=== PATIENT | male | born 1965 ===

== ENCOUNTER 2017-04-29 14:37 | Inpatient (IN) | payer MEDICAID ==
[2017-04-29] MEDS ORDERED: Sodium Chloride 0.9% 1,000 ML IV ONE ×2 (15:12→16:38)
[2017-04-29] MEDS ORDERED: Sodium Chloride 0.9% 1,000 ML ONE ×2 (15:18→16:40)
[2017-04-29 15:33] LABS: BASO % 0.3 % (0.0-2.0); HEMATOCRIT 44.2 % (35.0-51.0); LYMPH # 0.4 K/uL (1.0-4.3); MEAN CELL VOLUME 87.8 fL (80.0-94.0); MEAN CORPUSCULAR HEMOGLOBIN 29.9 pg (27.0-31.0); MEAN PLATELET VOLUME 7.5 fL (7.2-11.7); MONO # 0.4 K/uL (0.0-0.8); MONO % 7.5 % (0.0-10.0); NRBC % 0.2 % (0.0-2.0); PLATELET COUNT 186 K/uL (130-400); RED CELL DISTRIBUTION WIDTH 12.1 % (11.5-14.5); WHITE BLOOD COUNT 5.2 K/uL (4.8-10.8)
[2017-04-29 15:36] LABS: VENOUS BLOOD GAS BASE EXCESS 4.3 mmol/L (0.0-2.0); VENOUS BLOOD GAS PCO2 59 mmHg (40-60); VENOUS BLOOD PH 7.34 (7.32-7.43)
[2017-04-29 15:41] LABS: CHLORIDE 95 mmol/L (98-107); SODIUM 136 mmol/L (132-148)
[2017-04-29 15:43] LABS: AST/SGOT 51 U/L (17-59); BILIRUBIN,TOTAL 0.6 mg/dL (0.2-1.3); CARBON DIOXIDE 28 mmol/L (22-30); GFR AFRICAN-AMERICAN > 60
[2017-04-29 15:44] LABS: ALKALINE PHOSPHATASE 61 U/L (38-126); ALT/SGPT 59 U/L (21-72); BLOOD UREA NITROGEN 16 mg/dL (9-20); CALCIUM 8.8 mg/dl (8.6-10.4); GLUCOSE,RANDOM 134 mg/dL (75-110); TOTAL PROTEIN 7.8 g/dL (6.3-8.3)
[2017-04-29 15:45] LABS: RBC URINE 20 /hpf (0-3); URINE BILIRUBIN NEGATIVE (NEGATIVE); URINE BLOOD 1+ (NEGATIVE); URINE COLOR Amber (YELLOW); URINE GLUCOSE (UA) NORMAL (Normal); URINE HYALINE CAST 0-2 /lpf (0-2); URINE KETONE NEGATIVE (NEGATIVE); URINE LEUKOCYTE ESTERASE NEG Leu/uL (Negative); URINE PROTEIN 1+ mg/dL (NEGATIVE); WBC URINE 4 /hpf (0-5)
[2017-04-29 15:55] LABS: NEUTROPHIL 66 % (50-75); TOTAL CELLS COUNTED 100
--- NOTE | 2017-04-29 17:17 | RAD ---
HISTORY: Fever, cough COMPARISON: None available. TECHNIQUE: Chest, one view. FINDINGS: Examination limited by habitus. LUNGS: No focal consolidation. Please note that chest x-ray has limited sensitivity for the detection of pulmonary masses. PLEURA: No significant pleural effusion identified. No definite pneumothorax . CARDIOVASCULAR: The cardiomediastinal silhouette appears within normal limits of size. OSSEOUS STRUCTURES: No acute osseous abnormality identified. VISUALIZED UPPER ABDOMEN: Unremarkable. OTHER FINDINGS: None. IMPRESSION: No focal consolidation, significant pleural effusion, or definite pneumothorax identified.
[2017-04-29] MEDS ORDERED: Vancomycin 1 GM 1 GM/250 ML BAG IVPB STA (17:44)
[2017-04-29] MEDS ORDERED: Moxifloxacin IV 400mg/250ml NS 400 MG/250 ML BAG IVPB ONE ×2 (17:44→18:08)
--- NOTE | 2017-04-29 17:46 | C.PDOC ---
Time Seen by Provider: 04/29/17 15:03 Chief Complaint (Nursing): Fever History Per: Patient, Family Onset/Duration Of Symptoms: Days (4) Current Symptoms Are (Timing): Still Present Associated Symptoms: Fever, Sore Throat, Cough, Myalgias, Nasal Congestion Severity: Moderate Recent travel outside of the [place]: No Additional History Per: Prior Records Past Medical History Reviewed: Historical Data, Nursing Documentation, Vital Signs Vital Signs: Last Vital Signs Temp 100.7 F H 04/29/17 17:16 Pulse 76 04/29/17 17:16 Resp 16 04/29/17 17:16 BP 99/56 L 04/29/17 17:16 Pulse Ox 95 04/29/17 17:16 - Medical History PMH: No Chronic Diseases Surgical History: No Surg Hx Family History: States: Unknown Family Hx - Social History Hx Tobacco Use: No Hx Alcohol Use: No Hx Substance Use: No Review Of Systems Except As Marked, All Systems Reviewed And Found Negative. Constitutional: Positive for: Fever, Weakness, Malaise Eyes: Negative for: Conjunctivae Inflammation, Eyelid Inflammation ENT: Positive for: Throat Pain. Negative for: Ear Pain Cardiovascular: Negative for: Chest Pain Respiratory: Positive for: Cough. Negative for: Shortness of Breath, Hemoptysis Gastrointestinal: Negative for: Vomiting, Abdominal Pain, Diarrhea Genitourinary: Negative for: Dysuria Musculoskeletal: Positive for: Back Pain Skin: Negative for: Rash Neurological: Positive for: Headache. Negative for: Weakness, Numbness, Seizures, Altered Mental Status Physical Exam - Physical Exam Appears: No Acute Distress, Other (Malaised) Skin: Normal Color, Warm, Dry, No Rash Head: Atraumatic, Normacephalic Eye(s): bilateral: Normal Inspection, PERRL, EOMI Ear(s): Bilateral: Normal Oral Mucosa: Dry, No Drooling, No Trismus Tongue: Normal Appearing Throat: Erythema, No Exudate, No Drooling, No Mass Neck: Normal ROM, Supple Cardiovascular: Rhythm Regular Respiratory: Normal Breath Sounds, No Accessory Muscle Use Gastrointestinal/Abdominal: Soft, No Tenderness Back: No CVA Tenderness, No Vertebral Tenderness Extremity: Normal ROM Neurological/Psych: Oriented x3, Normal Motor, Normal Sensation ED Course And Treatment - Laboratory Results Result Diagrams: 04/29/17 15:28 04/29/17 15:28 Lab Interpretation: Abnormal Interpretation Of Abnormal: Bandemia O2 Sat by Pulse Oximetry: 95 Pulse Ox Interpretation: Normal - Radiology CXR: Viewed By Me, Read By Radiologist CXR Interpretation: Yes: No Acute Disease Progress Note: Pt refusing Throat culture. Progress - Interventions Interventions:: Observation, Intravenous fluid - Medications Administered Oral: Acetaminophen Intravenous: NSAID - Data Reviewed Data Reviewed: Lab, Diagnostic imaging, Old records - Patient Status Patient status: Partially improved - Continuity of Care Discussed patient case with:: Patient, Family-HIPPA compliant, ED Nurse, PMD Disposition Discussed With : Leandro Resendiz Comment: He wants pt blood and urine cultures to be sent, pt to be started on Avelox and Vancomycin IV and pt to be admitted on his service. Doctor Will See Patient In The: Hospital Counseled Patient/Family Regarding: Studies Performed, Diagnosis - Disposition Disposition: HOSPITALIZED Disposition Time: 17:48 Condition: GUARDED - Clinical Impression Clinical Impression: Fever, Bandemia
[2017-04-29] MEDS ORDERED: Vancomycin 1 GM 1 GM/250 ML BAG IVPB ONE (19:38)
--- NOTE | 2017-04-29 21:03 | CP.PCM.HP ---
Past Patient History - Past Social History Smoking Status: Never Smoked - PSYCHIATRIC Hx Substance Use: No - SURGICAL HISTORY Hx Surgeries: No Meds Allergies/Adverse Reactions: Allergies Allergy/AdvReac Type Severity Reaction Status Date / Time No Known Allergies Allergy Verified 03/30/16 17:42 Results - Vital Signs Recent Vital Signs: Last Vital Signs Temp 100.2 F H 04/29/17 20:58 Pulse 65 04/29/17 20:58 Resp 20 04/29/17 20:58 BP 92/58 L 04/29/17 20:58 Pulse Ox 96 04/29/17 20:58 - Labs Result Diagrams: 04/29/17 15:28 04/29/17 15:28
[2017-04-29] MEDS: Sodium Chloride 0.9% 1,000 ML IV SCH (21:44)
[2017-04-30] MEDS: guaiFENesin DM 200 mg-20 mg/10 ml UD PO PRN ×2 (06:20→18:26)
--- NOTE | 2017-04-30 06:55 | HP ---
CHIEF COMPLAINT: Fever, chills and weakness. HISTORY OF PRESENT ILLNESS: This is a 51-year-old male with history of hepatitis C and he has been evaluated by Hepatology and he is seroconverted, but he does not have any active disease. In usual state of health, he was ambulatory, independent in activities of daily living. No active medical issue. For the last 4 days, he has been having fever, chills, rigors, body aches, tiredness, cough, sore throat, nasal congestion and he is getting more, he was seen in [facility] with no improvement on medical . He is getting weak. He has chest congestion, weakness and he denies any abdominal pain, nausea, vomiting, diarrhea. He has generalized weakness and fatigue. He denied any polyuria, polydipsia, or polyphagia. He denies any hematuria or pyuria. There is no history of trauma, fall, or loss of consciousness. He denies any seizure-like activity. He denies any skin rash. He denies any vertigo. He denies any history of change in color of urine and feces. He denies any sneezing, itchy eyes, or itchy nose. He denies any history of recent drug abuse. He just had some dry cough. There is no chest pain. ALLERGIES: UNKNOWN ALLERGIES. CURRENT MEDICATIONS: None. PAST MEDICAL HISTORY: History of hepatitis C, recovered. SOCIAL HISTORY: Nonsmoker, non-EtOH user, no drug use. PHYSICAL EXAMINATION GENERAL: A middle aged male, in distress and generalized weakness. VITAL SIGNS: Blood pressure 115/70, pulse 84, respiratory rate 103. SKIN: Flushed, warm. HEENT: Atraumatic and normocephalic. Negative pallor. Negative jaundice. Extraocular movements are intact. NECK: Supple. Flat neck veins. No JVD. No lymph node. No thyromegaly. No carotid bruits. CHEST: Chest wall bilaterally symmetrical expansion. LUNGS: Bilaterally clear. No rales, no rhonchi. Severe PMI in the fifth intercostal space. CARDIOVASCULAR: S1 and S2, regular. ABDOMEN: Soft and nontender. Bowel sounds positive. RECTAL: No masses. No bleeding. EXTREMITIES: No clubbing, cyanosis, or edema. [employer]ODUCTION [employer]: Awake, alert, and oriented x3. Cranial nerves II through XII are normal. Power 5/5 x4. ASSESSMENT: 1. Fever, rule out septicemia. Etiology could be viral respiratory tract infection. 2. Dehydration. PLAN: Admit, septic workup, IV antibiotics, monitor the patient, ID consult. Leandro Resendiz MD
[2017-04-30] MEDS: Sodium Chloride 0.9% 1,000 ML IV SCH ×3 (07:22→17:48)
[2017-04-30 07:46] LABS: BASO % 0.2 % (0.0-2.0); EOS % 0.1 % (0.0-4.0); HEMATOCRIT 36.5 % (35.0-51.0); LYMPH # 1.2 K/uL (1.0-4.3); MEAN CORPUSCULAR HEMOGLOBIN 30.2 pg (27.0-31.0); MEAN CORPUSCULAR HGB CONC 35.5 g/dL (33.0-37.0); MEAN PLATELET VOLUME 7.9 fL (7.2-11.7); MONO # 0.5 K/uL (0.0-0.8); NRBC % 0.2 % (0.0-2.0); RED CELL DISTRIBUTION WIDTH 12.2 % (11.5-14.5); WHITE BLOOD COUNT 3.3 K/uL (4.8-10.8)
[2017-04-30 07:51] LABS: CHLORIDE 101 mmol/L (98-107); POTASSIUM 3.4 mmol/L (3.6-5.2); SODIUM 135 mmol/L (132-148)
[2017-04-30 07:53] LABS: BILIRUBIN,TOTAL 0.5 mg/dL (0.2-1.3); GFR AFRICAN-AMERICAN > 60
[2017-04-30 07:54] LABS: ALB/GLOB RATIO 0.9 (1.0-2.1); ALKALINE PHOSPHATASE 41 U/L (38-126); ALT/SGPT 48 U/L (21-72); AST/SGOT 31 U/L (17-59); BLOOD UREA NITROGEN 12 mg/dL (9-20); CALCIUM 7.6 mg/dl (8.6-10.4); CARBON DIOXIDE 27 mmol/L (22-30); GLUCOSE,RANDOM 110 mg/dL (75-110); MEAN CELL VOLUME 85.2 fL (80.0-94.0); TOTAL PROTEIN 5.8 g/dL (6.3-8.3)
[2017-04-30] MEDS ORDERED: Potassium Chloride 20 mEq ER Tab PO ONE (14:00)
[2017-04-30] MEDS: Moxifloxacin IV 400mg/250ml NS 400 MG/250 ML BAG IVPB SCH (17:46)
[2017-04-30] MEDS ORDERED: Potassium Chloride 20 mEq/15 ml LIQ UD PO STA (18:17)
[2017-04-30] MEDS: Oxymetazoline 0.05% Nasal Spray (30 ml) NS SCH (21:11)
--- NOTE | 2017-04-30 23:46 | CP.PCM.PN ---
Subjective - Date & Time of Evaluation Date of Evaluation: 04/30/17 - Subjective Subjective: fever low grade lbp, cough, no sob, no chest pain Objective - Vital Signs/Intake and Output Vital Signs (last 24 hours): Temp Pulse Resp BP Pulse Ox 99.2 F 58 L 18 116/69 97 04/30/17 16:00 04/30/17 16:00 04/30/17 16:00 04/30/17 16:00 04/30/17 16:00 - Medications Medications: Current Medications Acetaminophen (Tylenol 325mg Tab) 650 mg PO Q6 PRN PRN Reason: Fever >100.4 F Last Admin: 04/30/17 06:25 Dose: 650 mg Guaifenesin/Dextromethorphan (Robitussin Dm) 10 ml PO Q4H PRN PRN Reason: Cough and congestion Last Admin: 04/30/17 18:26 Dose: 10 ml Heparin Sodium (Porcine) (Heparin) 5,000 units SC Q8 [facility] Last Admin: 04/30/17 22:21 Dose: Not Given Moxifloxacin HCl (Avelox Iv 400mg/250ml Ns) 400 mg in 250 mls @ 167 mls/hr IVPB Q24H [facility] Last Admin: 04/30/17 17:46 Dose: 167 mls/hr Sodium Chloride (Sodium Chloride 0.9%) 1,000 mls @ 100 mls/hr IV .Q10H [facility] Last Admin: 04/30/17 17:48 Dose: Not Given Vancomycin HCl 1 gm/ Sodium (Chloride) 250 mls @ 166.7 mls/hr IVPB Q12 [facility] Last Admin: 04/30/17 22:18 Dose: 166.7 mls/hr Oxymetazoline HCl (Afrin 0.05%) 0 ml NS Q12H [facility] Last Admin: 04/30/17 21:11 Dose: 1 spray Pneumococcal Polyvalent Vaccine (Pneumovax 23 Vaccine) 0.5 ml IM .ONCE ONE Stop: 05/01/17 10:01 Tramadol HCl (Ultram) 50 mg PO TID PRN PRN Reason: Pain, severe (8-10) Last Admin: 04/30/17 19:59 Dose: 50 mg - Constitutional Appears: Non-toxic, No Acute Distress - Head Exam Head Exam: ATRAUMATIC, NORMAL INSPECTION, NORMOCEPHALIC - Eye Exam Eye Exam: EOMI, Normal appearance - ENT Exam ENT Exam: Mucous Membranes Moist, Normal Exam - Neck Exam Neck Exam: Normal Inspection - Respiratory Exam Respiratory Exam: Rhonchi, NORMAL BREATHING PATTERN - Cardiovascular Exam Cardiovascular Exam: Tachycardia, REGULAR RHYTHM - GI/Abdominal Exam GI & Abdominal Exam: Soft, Normal Bowel Sounds Assessment and Plan (1) Bandemia Status: Acute (2) Fever Status: Acute
[2017-05-01] MEDS: Sodium Chloride 0.9% 1,000 ML IV SCH ×2 (05:30→14:14)
[2017-05-01] MEDS: Oxymetazoline 0.05% Nasal Spray (30 ml) NS SCH ×2 (09:17→21:12)
[2017-05-01] MEDS ORDERED: Pneumococcal 23-Valent Vaccine IM ONE (10:00)
[2017-05-01] MEDS: guaiFENesin DM 200 mg-20 mg/10 ml UD PO PRN ×2 (12:39→21:18)
--- NOTE | 2017-05-01 15:05 | CP.PCM.PN ---
Objective - Vital Signs/Intake and Output Vital Signs (last 24 hours): Temp Pulse Resp BP Pulse Ox 98.5 F 53 L 20 129/80 97 05/01/17 08:24 05/01/17 08:24 05/01/17 08:24 05/01/17 08:24 05/01/17 08:24 Intake and Output: 05/01/17 05/01/17 06:59 18:59 Intake Total 800 Balance 800 - Medications Medications: Current Medications Acetaminophen (Tylenol 325mg Tab) 650 mg PO Q6 PRN PRN Reason: Fever >100.4 F Last Admin: 04/30/17 23:53 Dose: 650 mg Guaifenesin/Dextromethorphan (Robitussin Dm) 10 ml PO Q4H PRN PRN Reason: Cough and congestion Last Admin: 05/01/17 12:39 Dose: 10 ml Heparin Sodium (Porcine) (Heparin) 5,000 units SC Q8 [facility] Last Admin: 05/01/17 13:20 Dose: Not Given Moxifloxacin HCl (Avelox Iv 400mg/250ml Ns) 400 mg in 250 mls @ 167 mls/hr IVPB Q24H [facility] Last Admin: 04/30/17 17:46 Dose: 167 mls/hr Sodium Chloride (Sodium Chloride 0.9%) 1,000 mls @ 100 mls/hr IV .Q10H [facility] Last Admin: 05/01/17 14:14 Dose: 100 mls/hr Vancomycin HCl 1 gm/ Sodium (Chloride) 250 mls @ 166.7 mls/hr IVPB Q12 [facility] Last Admin: 05/01/17 09:16 Dose: 166.7 mls/hr Oxymetazoline HCl (Afrin 0.05%) 0 ml NS Q12H [facility] Last Admin: 05/01/17 09:17 Dose: 1 spray Tramadol HCl (Ultram) 50 mg PO TID PRN PRN Reason: Pain, severe (8-10) Last Admin: 05/01/17 12:39 Dose: 50 mg Assessment and Plan (1) Bandemia Status: Acute (2) Fever Status: Acute
[2017-05-01] MEDS: Moxifloxacin IV 400mg/250ml NS 400 MG/250 ML BAG IVPB SCH (17:51)
[2017-05-02 08:22] VITALS: RESP 20
[2017-05-02] MEDS: Sodium Chloride 0.9% 1,000 ML IV SCH ×2 (09:30→21:34)
[2017-05-02] MEDS: Oxymetazoline 0.05% Nasal Spray (30 ml) NS SCH ×2 (09:31→21:40)
[2017-05-02] MEDS: guaiFENesin DM 200 mg-20 mg/10 ml UD PO PRN ×3 (09:32→21:40)
[2017-05-02] MEDS: Moxifloxacin IV 400mg/250ml NS 400 MG/250 ML BAG IVPB SCH (17:47)
--- NOTE | 2017-05-02 23:22 | CP.PCM.PN ---
Subjective - Date & Time of Evaluation Date of Evaluation: 05/02/17 - Subjective Subjective: no fever, no sob, cough Objective - Vital Signs/Intake and Output Vital Signs (last 24 hours): Temp Pulse Resp BP Pulse Ox 98.9 F 46 L 20 127/73 98 05/02/17 16:00 05/02/17 16:00 05/02/17 16:00 05/02/17 16:00 05/02/17 16:00 Intake and Output: 05/02/17 05/03/17 18:59 06:59 Intake Total 800 900 Balance 800 900 - Medications Medications: Current Medications Acetaminophen (Tylenol 325mg Tab) 650 mg PO Q6 PRN PRN Reason: Fever >100.4 F Last Admin: 04/30/17 23:53 Dose: 650 mg Guaifenesin/Dextromethorphan (Robitussin Dm) 10 ml PO Q4H PRN PRN Reason: Cough and congestion Last Admin: 05/02/17 21:40 Dose: 10 ml Moxifloxacin HCl (Avelox Iv 400mg/250ml Ns) 400 mg in 250 mls @ 167 mls/hr IVPB Q24H [facility] Last Admin: 05/02/17 17:47 Dose: 167 mls/hr Vancomycin HCl 1 gm/ Sodium (Chloride) 250 mls @ 166.7 mls/hr IVPB Q12 [facility] Last Admin: 05/02/17 21:35 Dose: 166.7 mls/hr Oxymetazoline HCl (Afrin 0.05%) 0 ml NS Q12H [facility] Last Admin: 05/02/17 21:40 Dose: 1 spray Tramadol HCl (Ultram) 50 mg PO TID PRN PRN Reason: Pain, severe (8-10) Last Admin: 05/02/17 21:41 Dose: 50 mg - Constitutional Appears: Non-toxic, No Acute Distress - Head Exam Head Exam: ATRAUMATIC, NORMAL INSPECTION, NORMOCEPHALIC - Eye Exam Eye Exam: Normal appearance Pupil Exam: NORMAL ACCOMODATION - ENT Exam ENT Exam: Mucous Membranes Moist, Normal Exam - Neck Exam Neck Exam: Full ROM, Normal Inspection - Cardiovascular Exam Cardiovascular Exam: REGULAR RHYTHM, +S1, +S2 - GI/Abdominal Exam GI & Abdominal Exam: Normal Bowel Sounds Assessment and Plan (1) Bandemia Status: Acute (2) Fever Status: Acute
[2017-05-03] MEDS: Oxymetazoline 0.05% Nasal Spray (30 ml) NS SCH ×2 (10:02→12:43)
[2017-05-03] MEDS: guaiFENesin DM 200 mg-20 mg/10 ml UD PO PRN (10:19)
[2017-05-03 14:38] LABS: CHLORIDE 98 mmol/L (98-107); POTASSIUM 4.1 mmol/L (3.6-5.2); SODIUM 137 mmol/L (132-148)
[2017-05-03 14:41] LABS: BLOOD UREA NITROGEN 12 mg/dL (9-20); CALCIUM 8.6 mg/dl (8.6-10.4); CARBON DIOXIDE 26 mmol/L (22-30); GFR AFRICAN-AMERICAN > 60; GLUCOSE,RANDOM 117 mg/dL (75-110)
[2017-05-03 14:43] LABS: BASO % 0.4 % (0.0-2.0); HEMATOCRIT 43.8 % (35.0-51.0); LYMPH # 1.2 K/uL (1.0-4.3); LYMPH % 50.7 % (20.0-40.0); MEAN CELL VOLUME 86.2 fL (80.0-94.0); MEAN CORPUSCULAR HEMOGLOBIN 29.9 pg (27.0-31.0); MEAN CORPUSCULAR HGB CONC 34.7 g/dL (33.0-37.0); MEAN PLATELET VOLUME 7.7 fL (7.2-11.7); MONO # 0.3 K/uL (0.0-0.8); MONO % 12.7 % (0.0-10.0); NRBC % 0.2 % (0.0-2.0); PLATELET COUNT 203 K/uL (130-400); WHITE BLOOD COUNT 2.4 K/uL (4.8-10.8)
[2017-05-03 15:33] LABS: NEUTROPHIL 20 % (50-75); REACTIVE LYMPHOCYTES 2 % (0-0); TOTAL CELLS COUNTED 50
[2017-05-03 17:04] VITALS: BP 146/88; PULSE 51; TEMP 98.5; O2SAT 98
--- NOTE | 2017-05-03 17:33 | CP.PCM.PN ---
Subjective - Date & Time of Evaluation Date of Evaluation: 05/03/17 Time of Evaluation: 11:00 - Subjective Subjective: Alert, awake, denies sob or chest pains. no acute distress. Objective - Vital Signs/Intake and Output Vital Signs (last 24 hours): Temp Pulse Resp BP Pulse Ox 98.5 F 51 L 20 146/88 98 05/03/17 15:03 05/03/17 15:03 05/03/17 15:03 05/03/17 15:03 05/03/17 15:03 Intake and Output: 05/03/17 05/03/17 06:59 18:59 Intake Total 1050 Balance 1050 - Labs Labs: 05/03/17 14:20 05/03/17 14:20 Assessment and Plan - Assessment and Plan (Free Text) Assessment: Patient is seen and examined. Alert and orientedx3, no sob or chest pains. D/W DR Resendiz, discharge plan for today on avelox 400mg po daily x5 days. Advised to follow up PMD in 1 week.
--- NOTE | 2017-05-03 19:33 | CP.PCM.DIS ---
Provider - Provider Date of Admission: 04/30/17 11:54 Attending physician: Leandro Resendiz MD Diagnosis - Discharge Diagnosis (1) Bandemia Status: Acute (2) Fever Status: Acute Hospital Course - Lab Results Lab Results: Most Recent Lab Values WBC 2.4 K/uL (4.8-10.8) L 05/03/17 14:20 RBC 5.08 Mil/uL (4.40-5.90) 05/03/17 14:20 Hgb 15.2 g/dL (12.0-18.0) D 05/03/17 14:20 Hct 43.8 % (35.0-51.0) 05/03/17 14:20 MCV 86.2 fL (80.0-94.0) 05/03/17 14:20 MCH 29.9 pg (27.0-31.0) 05/03/17 14:20 MCHC 34.7 g/dL (33.0-37.0) 05/03/17 14:20 RDW 12.0 % (11.5-14.5) 05/03/17 14:20 Plt Count 203 K/uL (130-400) 05/03/17 14:20 MPV 7.7 fL (7.2-11.7) 05/03/17 14:20 Neut % (Auto) 34.2 % (50.0-75.0) L 05/03/17 14:20 Lymph % (Auto) 50.7 % (20.0-40.0) H 05/03/17 14:20 [place] % (Auto) 12.7 % (0.0-10.0) H 05/03/17 14:20 Eos % (Auto) 2.0 % (0.0-4.0) 05/03/17 14:20 Baso % (Auto) 0.4 % (0.0-2.0) 05/03/17 14:20 Neut # 0.8 K/uL (1.8-7.0) L 05/03/17 14:20 Lymph # 1.2 K/uL (1.0-4.3) 05/03/17 14:20 [place] # 0.3 K/uL (0.0-0.8) 05/03/17 14:20 Eos # 0.0 K/uL (0.0-0.7) 05/03/17 14:20 Baso # 0.0 K/uL (0.0-0.2) 05/03/17 14:20 Neutrophils % (Manual) 20 % (50-75) L 05/03/17 14:20 Band Neutrophils % 2 % (0-2) 05/03/17 14:20 Lymphocytes % (Manual) 58 % (20-40) H 05/03/17 14:20 Reactive Lymphs % 2 % (0-0) H 05/03/17 14:20 Monocytes % (Manual) 18 % (0-10) H 05/03/17 14:20 Platelet Estimate Normal (NORMAL) 05/03/17 14:20 RBC Morphology Normal 05/03/17 14:20 pO2 16 mm/Hg (30-55) L 04/29/17 15:30 VBG pH 7.34 (7.32-7.43) 04/29/17 15:30 VBG pCO2 59 mmHg (40-60) 04/29/17 15:30 VBG HCO3 26.2 mmol/L 04/29/17 15:30 VBG Total CO2 33.6 mmol/L (22-28) H 04/29/17 15:30 VBG O2 Sat (Calc) 22.1 % (40-65) L 04/29/17 15:30 VBG Base Excess 4.3 mmol/L (0.0-2.0) H 04/29/17 15:30 VBG Potassium 4.4 mmol/L (3.6-5.2) 04/29/17 15:30 Sodium 134.0 mmol/l (132-148) 04/29/17 15:30 Chloride 100.0 mmol/L (98-107) 04/29/17 15:30 Glucose 139 mg/dl (75-110) H 04/29/17 15:30 Lactate 1.8 mmol/L (0.7-2.1) 04/29/17 15:30 FiO2 21.0 % 04/29/17 15:30 Sodium 137 mmol/L (132-148) 05/03/17 14:20 Potassium 4.1 mmol/L (3.6-5.2) 05/03/17 14:20 Chloride 98 mmol/L (98-107) 05/03/17 14:20 Carbon Dioxide 26 mmol/L (22-30) 05/03/17 14:20 Anion Gap 17 (10-20) 05/03/17 14:20 BUN 12 mg/dL (9-20) 05/03/17 14:20 Creatinine 0.8 MG/DL (0.8-1.5) 05/03/17 14:20 Est GFR ( Amer) > 60 05/03/17 14:20 Est GFR (Non-Af Amer) > 60 05/03/17 14:20 Random Glucose 117 mg/dL (75-110) H 05/03/17 14:20 Calcium 8.6 mg/dl (8.6-10.4) 05/03/17 14:20 Total Bilirubin 0.5 mg/dL (0.2-1.3) 04/30/17 07:10 AST 31 U/L (17-59) 04/30/17 07:10 ALT 48 U/L (21-72) 04/30/17 07:10 Alkaline Phosphatase 41 U/L (38-126) 04/30/17 07:10 Total Protein 5.8 g/dL (6.3-8.3) L 04/30/17 07:10 Albumin 2.7 g/dL (3.5-5.0) L D 04/30/17 07:10 Globulin 3.1 gm/dL (2.2-3.9) 04/30/17 07:10 Albumin/Globulin Ratio 0.9 (1.0-2.1) L 04/30/17 07:10 Venous Blood Potassium 4.4 mmol/L (3.6-5.2) 04/29/17 15:30 Urine Color Leida (YELLOW) 04/29/17 15:28 Urine Clarity Clear (Clear) 04/29/17 15:28 Urine pH 5.0 (5.0-8.0) 04/29/17 15:28 Ur Specific Moore 1.031 (1.003-1.030) H 04/29/17 15:28 Urine Protein 1+ mg/dL (NEGATIVE) H 04/29/17 15:28 Urine Glucose (UA) Normal mg/dL (Normal) 04/29/17 15:28 Urine Ketones Negative mg/dL (NEGATIVE) 04/29/17 15:28 Urine Blood 1+ (NEGATIVE) H 04/29/17 15:28 Urine Nitrate Negative (NEGATIVE) 04/29/17 15:28 Urine Bilirubin Negative (NEGATIVE) 04/29/17 15:28 Urine Urobilinogen 4.0 mg/dL (0.2-1.0) 04/29/17 15:28 Ur Leukocyte Esterase Neg Alexei/uL (Negative) 04/29/17 15:28 Urine WBC (Auto) 4 /hpf (0-5) 04/29/17 15:28 Urine RBC (Auto) 20 /hpf (0-3) H 04/29/17 15:28 Ur Squamous Epith Cells 1 /hpf (0-5) 04/29/17 15:28 Hyaline Casts 0-2 /lpf (0-2) 04/29/17 15:28 Infectious [place] Assay Negative (NEGATIVE) 04/29/17 15:28 - Hospital Course Hospital Course: 51 WITH FEVER, COUGH, ACHES AND PAIN, WHEEZING, NO NAUSEA. NO CHEST PAIN Discharge Exam - Head Exam Head Exam: ATRAUMATIC, NORMAL INSPECTION, NORMOCEPHALIC - Eye Exam Eye Exam: EOMI, Normal appearance, PERRL Pupil Exam: NORMAL ACCOMODATION, PERRL - ENT Exam ENT Exam: Mucous Membranes Moist, Normal Exam, Normal Oropharynx, TM's Normal Bilaterally - Neck Exam Neck exam: Normal Inspection - Respiratory Exam Respiratory Exam: Rhonchi, NORMAL BREATHING PATTERN - Cardiovascular Exam Cardiovascular Exam: REGULAR RHYTHM, +S1, +S2 - GI/Abdominal Exam GI & Abdominal Exam: Normal Bowel Sounds - Rectal Exam Rectal Exam: NORMAL INSPECTION - Neurological Exam Neurological exam: Alert, CN II-XII Intact, Normal Gait, Oriented x3, Reflexes Normal - Psychiatric Exam Psychiatric exam: Normal Affect, Normal Mood - Skin Skin Exam: Intact Discharge Plan - Discharge Medications Prescriptions: Moxifloxacin [Avelox] 400 mg PO DAILY #5 tab - Follow Up Plan Condition: GUARDED Disposition: HOME/ ROUTINE Instructions: Moxifloxacin (By mouth), Fever in Adults (GEN) Referrals: Leandro Resendiz MD [Staff Provider] -
== END 2017-05-03 17:23 | disposition home or self-care (01) | DRG 399 ==
LOC: C.ER 14:37 → C.9E 17:48 → C.3T 20:47 → OBSVTOIN 04-30 11:54 → C.3T 05-01 19:12
PROVIDERS: ADMIT Internal Medicine; ATTEND Internal Medicine
DX: D72.825 Bandemia (principal); J02.9 Acute pharyngitis, unspecified; R06.2 Wheezing; R05 Cough; Z86.19 Personal history of other infectious and parasitic diseases